=== PATIENT | female | born 2000 | race Hispanic/Latino ===

== ENCOUNTER 2025-04-19 12:56 | Outpatient (CLI) | payer BC | END 2025-04-19 12:57 | disposition home or self-care (01) | LOC: CSHMRI 12:56 | PROVIDERS: ATTEND Student in an Organized Health Care Education/Training Program | DX: D25.9 Leiomyoma of uterus, unspecified (principal); E28.1 Androgen excess; R19.09 Other intra-abdominal and pelvic swelling, mass and lump | CPT/HCPCS: 72197 ==

== ENCOUNTER 2025-05-31 08:59 | Day surgery (SDC) | payer BC ==
[2025-05-30 11:35] VITALS: BMI 20.1
[2025-05-30 12:12] LABS: Hematocrit 43.7 % (34.9-44.5); Hemoglobin 14.4 g/dL (12.0-15.5); Mean Corpuscular Hemoglobin 29.9 pg (27.0-33.0); Mean Corpuscular Volume 90.9 fL (81.6-98.3); Platelet Count 229 10x3/uL (150-450); Red Blood Cell (RBC) Count 4.81 10x6/uL (3.90-5.03); White Blood Cell (WBC) Count 5.46 10x3/uL (3.5-10.5)
[2025-05-30 12:45] LABS: BHCG - Serum Negative (NEGATIVE); Pregs Control Background? CLEAR/WHITE (CLR/WHITE); Pregs Control Bar Appear? YES (CONTROL BAR)
[2025-05-31] MEDS ORDERED: PROPOFOL 40 ML ONE (09:01)
[2025-05-31] MEDS ORDERED: Lidocaine 2% PF 100 mg/5 ml Syringe ONE (09:01)
[2025-05-31] MEDS ORDERED: Ketorolac Tromethamine 30 MG (1 mL) VIAL ONE (09:01)
[2025-05-31] MEDS ORDERED: Phenylephrine 40 MG/NS 250 ML 250 ML ONE (09:01)
[2025-05-31] MEDS ORDERED: Rocuronium Bromide 10 MG/ML (10ML VIAL) ONE (09:05)
[2025-05-31] MEDS ORDERED: Gabapentin 300 MG CAP ONE (09:31)
[2025-05-31] MEDS ORDERED: Famotidine/PF 20 mg/2ml Vial ONE (09:31)
[2025-05-31] MEDS ORDERED: Bupivacaine HCl 0.5%/Epinephrine 1:200,000/PF 30 ml Vial ONE (09:54)
[2025-05-31] MEDS ORDERED: Scopolamine 1 mg/72 hour Patch ONE (10:22)
[2025-05-31] MEDS ORDERED: CEFAZOLIN 2 GM VIAL ONE (10:33)
== END 2025-05-31 14:45 | disposition home or self-care (01) ==
LOC: CSHSDC 08:59
PROVIDERS: ATTEND Student in an Organized Health Care Education/Training Program
PROC: 0W9G4ZX Drainage of Peritoneal Cavity, Percutaneous Endoscopic Approach, Diagnostic (ICD-10-PCS; principal; 2025-05-31)
DX: D25.2 Subserosal leiomyoma of uterus (principal); Z91.041 Radiographic dye allergy status
CPT/HCPCS: 36415; 82105; 83520; 83615; 84702; 84703; 85027; 86336; 86850; 86900; 86901; 88112; 88305; J1100; J1308; J1885; J2003; J2250; J2704; J3010; S2900